=== PATIENT | female | born 1980 | race African-American/Black ===

== ENCOUNTER 2017-07-20 05:41 | Inpatient (IN) | payer OTHER ==
[~2017-07-20] VITALS: Ht 165.1 cm; Wt 96.6 kg
--- NOTE | 2017-07-20 07:56 | History & Physical Pre-Op ---
General Information and HPI MD Statement: I have seen and personally examined LIUDMILAKRISTINA and documented this H&P. The patient is a 36 year old F who presented with a patient stated chief complaint of HIV AND []. History of Present Illness: 36 YO G1 PO AT 39 WEEKS FOR C/S Past History Surgical History Pertinent Surgical History: none Assessment/Plan As Ranked By This Provider Problem List: 1.
--- NOTE | 2017-07-20 09:05 | Operative Report ---
Operative/Inv Procedure Report Surgery Date: 07/20/17 Name of Procedure: Primary low flap transverse section via Pfannenstiel skin incision Pre-Operative Diagnosis: HIV-positive fibroid uterus term patient choice Post-Operative Diagnosis: Same Estimated Blood Loss: 500 Surgeon/Marine Engine Mechanic: Andrade BERRIOS,Maite Herring and Dr. Akira Cerda Anesthesia: block Operative/Procedure Note Note: Senile patient was taken the operating room placed supine position after timeout adequate anesthesia patient placed in dorsolithotomy position the vagina from dorsal fashion bladder was catheterized examination under anesthesia was performed she was returned supine position skin testing was performed found be adequate for surgery on the the abdomen was prepped and draped so fashion this point through a Pfannenstiel skin incision 2 fingerbreadths of symptoms pubis in midline skin was cut subcutaneous case had tissue was are cut using a Bovie . Fascia was cut using a Bovie at this point was dissected bluntly off of the rectus sheath peritoneal cavity was entered high into the abdomen on dissected bluntly low bladed [facility] was placed and lower and incision the visceral peritoneum of the uterus was dissected anteriorly a bladder flap was developed patient tolerated that well at this point in the lower uterine segment uterus nicked into with back knife dissected bluntly as well as sharply on since removed field infant was delivered over the abdominal wall cord was doubly clamped and cut infant was handed to the quality control inspector who was waiting delivering to aid in resuscitation placenta was delivered manually noted to be intact wiped clean with 2 wet dry lap pads to ensure it was free of her membranes was oversewn running locked suture was indicated interrupted [id number] for hemostasis. Was reapproximated using 0 after ERISTA had been applied to the surgical site and the abdomen had been irrigated copious amounts warm saline to ensure hemostasis. Fascia was reapproximated using 0 skin was reapproximated using mike on the subcutaneous tissue was irrigated prior to closure with mike for hemostasis Bovie coagulation was performed at the end the case mother and transferred recovery room awake alert counts correct urine was clear .
[2017-07-20 09:07] VITALS: BP 122/73
--- NOTE | 2017-07-21 05:42 | PN- Post Delivery/GYN ---
Subjective Subjective: NO COMPLAINTS Objective Last 24 Hrs of Vital Signs/I&O Vital Signs Date Time Temp Pulse Resp B/P B/P Pulse O2 O2 Flow FiO2 Mean Ox Delivery Rate 07/20 0907 122/73 Intake & Output 07/21 0800 07/21 0000 07/20 1600 Intake Total Output Total Balance Patient 213 lb Weight Physical Exam: PE OBESE BF IN NAD ABD SOFT NT INCISION CDI FUNDUS FIRM NT LOCHIA MINIMAL EXT -EDEMA -HOMANS Assessment/Plan Assessment/Plan ASSESS S/P C/S PLAN CONT PPC
[2017-07-21 09:03] LABS: ABSOLUTE BASOPHIL COUNT 0 /CUMM (0.0-0.2); ABSOLUTE EOSINOPHIL COUNT 0.3 /CUMM (0.0-0.7); ABSOLUTE GRANULOCYTE CT 5.4 /CUMM (1.4-6.5); ABSOLUTE LYMPH COUNT 1.4 /CUMM (1.2-3.4); ABSOLUTE MONOCYTE COUNT 0.6 /CUMM (0.10-0.60); BASOPHIL % 0.5 % (0.0-2.0); EOSINOPHIL % 3.8 % (0-5); GRANULOCYTE % 69.1 % (42.2-75.2); MEAN CORPUSCULAR HGB 27.9 PG (27.0-31.0); MEAN CORPUSCULAR HGB CONC 32.5 G/DL (33.0-37.0); MEAN CORPUSCULAR VOLUME 85.9 FL (81.0-99.0); MEAN PLATELET VOLUME 9.5 FL (7.4-10.4); PLATELET COUNT 146 /CUMM (130-400); RBC DISTRIBUTION WIDTH 14.9 % (11.5-14.5); RED BLOOD CELL CT 2.88 /CUMM (4.20-5.40); WHITE BLOOD CELL COUNT 7.8 /CUMM (4.8-10.8)
[2017-07-21 09:17] LABS: HEMATOCRIT 24.8 % (37-47)
--- NOTE | 2017-07-22 10:54 | PN- Post Delivery/GYN ---
Subjective Subjective: Complaint of pain today only taking Motrin complains of pain today only taking Motrin tolerated diet regular diet Objective Last 24 Hrs of Vital Signs/I&O as per chart Physical Exam: Obese black female in no apparent distress HEENT anicteric Abdomen soft distention Incision clean dry and intact Extremities negative edema negative Homans Lochia minimal fundus firm nontender Assessment/Plan Assessment/Plan Assessment status post primary low flap transverse section with fibroid Plan continue postop care encourage ambulation
[2017-07-23] MEDS ORDERED: PERCOCET 5-3251 EACH PO (09:27)
[2017-07-23] MEDS ORDERED: IBUPROFEN800 M1 PO (09:27)
== END 2017-07-23 11:40 | DRG 540 ==
LOC: GNO 05:41
PROVIDERS: Specialist
PROC: 10D00Z1 Extraction of Products of Conception, Low, Open Approach (ICD-10-PCS; principal; 2017-07-20)
DX: O98.72 Human immunodeficiency virus [HIV] disease complicating childbirth (principal); O99.824 Streptococcus B carrier state complicating childbirth; O34.13 Maternal care for benign tumor of corpus uteri, third trimester; Z3A.39 39 weeks gestation of pregnancy; Z37.0 Single live birth
CPT/HCPCS: 81001; 86701; 86702; 87086; 87535; 88307; G0463; J0131; J0690; J1650; J1885; J7120